=== PATIENT | female | born 1990 | race African-American/Black ===

== ENCOUNTER → 2019-10-03 09:31 | Outpatient (CLI) | payer OTHER, SELFPAY ==
--- NOTE | ~2019-10-03 | XR_ITS ---
EXAMINATION: XR lumbar spine 6V w bending DATE: 10/03/2019 10:40 INDICATION: Dorsalgia, unspecified TECHNIQUE: Anteroposterior, lateral in neutral, flexion and extension, and bilateral oblique views of the lumbar spine, and cone-down lateral view of the lumbosacral junction were obtained. COMPARISON: None. FINDINGS: Bone alignment is normal. No abnormal motion is identified with flexion or extension. There is mild loss of intervertebral disc space height at L5-S1. Vertebral body heights are normal. There is no fracture. The bowel gas pattern is normal. A moderate volume of colonic stool is present. IMPRESSION: 1. Mild lumbar spondylosis without acute findings. Reviewed, dictated and finalized at location A. 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
--- NOTE | ~2019-10-03 | XR_ITS ---
EXAMINATION: XR sacroiliac joints min 3V INDICATION: Dorsalis unspecified TECHNIQUE: Three views of the sacroiliac joints are obtained. COMPARISON: None available FINDINGS: Bone alignment is normal. There is no fracture. No abnormal erosion or sclerosis is seen. T here are phleboliths of the pelvis. IMPRESSION: 1. No radiographic correlate for the patient's symptoms. Reviewed, dictated and finalized at location A. [employer]
== END ==
PROVIDERS: PCP Family Medicine; Visit Provider Family Medicine
DX: M47.896 Other spondylosis, lumbar region (principal)
CPT/HCPCS: 72114; 72202